=== PATIENT | female | born 1970 | race Hispanic/Latino ===

== ENCOUNTER 2018-05-22 07:26 | Day surgery (SDC) | payer OTHER ==
--- OUTSIDE RECORDS SUMMARY | 2018-05-22 07:28 | XMS REPORT ---
:1970 Author Organization eClinicalWorks Care Team Providers Name Role Phone Paul Lock Provider Role Unavailable Allergies No Known Allergies Problems Problem Type Condition Code Onset Dates Condition Status Assessment Iron deficiency E61.1 Active Problem Iron deficiency E61.1 Active Problem Allergic rhinitis, seasonal J30.2 Active Problem Vitamin D deficiency E55.9 Active Problem Constipation K59.00 Active Problem Hypothyroidism E03.9 Active Problem Symptomatic postsurgical menopause E89.41 Active Problem Fatigue R53.83 Active Medications Medication Code Code Instructions Start End Date Status Dosage System Date Ferrous WAC 60160313953 325 (65 Fe) MG Active 1 tablet Sulfate Orally Twice a day Results No Known Results Summary Purpose eClinicalWorks Submission
--- OUTSIDE RECORDS SUMMARY | 2018-05-22 07:28 | XMS REPORT ---
:1970 Author Organization eClinicalWorks Care Team Providers Name Role Phone Paul Lock Provider Role Unavailable Allergies, Adverse Reactions, Alerts Substance Reaction Event Type N.K.D.A. Info Not Available Non Drug Allergy Problems Problem Type Condition Code Onset Dates Condition Status Assessment Vitamin D deficiency E55.9 Active Assessment Hypothyroidism E03.9 Active Problem Iron deficiency E61.1 Active Problem Allergic rhinitis, seasonal J30.2 Active Problem Vitamin D deficiency E55.9 Active Problem Constipation K59.00 Active Problem Hypothyroidism E03.9 Active Problem Symptomatic postsurgical menopause E89.41 Active Problem Fatigue R53.83 Active Assessment Symptomatic postsurgical menopause E89.41 Active Assessment Allergic rhinitis, seasonal J30.2 Active Assessment Constipation K59.00 Active Assessment Fatigue R53.83 Active Assessment Iron deficiency E61.1 Active Medications Medication Code Code Instructions Start End Status Dosage System Date Date Amitiza [facility] 10837759793 8 MCG Active TAKE ONE CAPSULE BY MOUTH TWICE A DAY WITH FOOD Levothyroxine [facility] 77065775350 75 MCG Orally Active 1 tablet Sodium Once a day on an empty stomach in the morning Claritin [facility] 48880235265 10 MG Orally Active 1 tablet Once a day Flonase [facility] 90540437911 50 MCG/ACT Active 1 spray in Nasally Once a each day nostril Amitiza [facility] 20156512432 24 MCG Orally Active 1 capsule Once a day with food Ferrous Sulfate [facility] 12254719956 325 (65 Fe) MG Active 1 tablet Orally Twice a day Levothyroxine [facility] 98523429394 50 MCG Orally Active 1 tablet Sodium Once a day on an empty stomach in the morning -[address] [facility] 66092229746 81 MG Orally Active 1 tablet Once a day Results No Known Results Summary Purpose eClinicalWorks Submission
--- OUTSIDE RECORDS SUMMARY | 2018-05-22 07:28 | XMS REPORT ---
:1970 Author Organization eClinicalWorks Care Team Providers Name Role Phone LockPaul Provider Role Unavailable Allergies, Adverse Reactions, Alerts Substance Reaction Event Type N.K.D.A. Info Not Available Non Drug Allergy Problems Problem Type Condition Code Onset Dates Condition Status Assessment Well adult on routine health check Z00.00 Active Problem Hypothyroidism E03.9 Active Problem Vitamin D deficiency E55.9 Active Assessment Adult BMI 39.0-39.9 kg/sq m Z68.39 Active Problem Iron deficiency E61.1 Active Problem Adult BMI 39.0-39.9 kg/sq m Z68.39 Active Problem Fatigue R53.83 Active Problem Constipation K59.00 Active Problem Allergic rhinitis, seasonal J30.2 Active Problem Symptomatic postsurgical menopause E89.41 Active Assessment Allergic rhinitis, seasonal J30.2 Active Assessment Constipation K59.00 Active Assessment Fatigue R53.83 Active Assessment Symptomatic postsurgical menopause E89.41 Active Assessment Hypothyroidism E03.9 Active Assessment Screening for colon cancer Z12.11 Active Assessment Iron deficiency E61.1 Active Assessment Need for influenza vaccination Z23 Active Assessment Vitamin D deficiency E55.9 Active Assessment Screening mammogram, encounter for Z12.31 Active Medications Medication Code Code Instructions Start End Status Dosage System Date Date Levothyroxine [facility] 50615565641 75 MCG Orally Active 1 tablet Sodium Once a day on an empty stomach in the morning Ferrous Sulfate [facility] 12826519223 325 (65 Fe) MG Active 1 tablet Orally Twice a day Claritin [facility] 87123896657 10 MG Orally Active 1 tablet Once a day Amitiza [facility] 99573171909 24 MCG Orally Active 1 capsule Once a day with food Flonase [facility] 05621380186 50 MCG/ACT Active 1 spray in Nasally Once a each day nostril Aspir-81 [facility] 72483007708 81 MG Orally Active 1 tablet Once a day Amitiza [facility] 21491555827 8 MCG Active TAKE ONE CAPSULE BY MOUTH TWICE A DAY WITH FOOD Levothyroxine [facility] 94222281027 75 MCG Orally Active 1 tablet Sodium Once a day on an empty stomach in the morning Results No Known Results Immunizations Vaccine Administration Date Afluria May 08, 2018 Summary Purpose eClinicalWorks Submission
[2018-05-22] MEDS ORDERED: Ringers Lactate 1,000 ML IV ONE (07:51)
[2018-05-22] MEDS ORDERED: LIDOCAINE 1% MPF 5 ML VIAL ONE (08:17)
[2018-05-22] MEDS ORDERED: PROPOFOL 200 MG/20 ML VIAL IV ONE (08:17)
[2018-05-22] MEDS ORDERED: GLYCOPYRROLATE 0.2 MG/ML SYR ONE (08:17)
[2018-05-22] MEDS ORDERED: SIMETHICONE 40 MG/ 0.6 ML ONE (08:18)
--- NOTE | 2018-05-22 08:41 | ENDO RPT ---
[address], [address] COLONOSCOPY PROCEDURE REPORT EXAM DATE: 05/22/2018 PATIENT NAME: Franny Key MR #: [id number] BIRTHDATE: 1970 ATTENDING: Eren Rao MD STATUS: outpatient [employer]: Cher Mejia RN, Claritza Mcguire RN, and Leeann Gabriel INDICATIONS: The patient is a 48 yr old Female here for a colonoscopy due to colon cancer screening PROCEDURE PERFORMED: Colonoscopy with biopsy - cold polypectomy MEDICATIONS: Per Anesthesia. ESTIMATED BLOOD LOSS: None CONSENT: The patient understands the risks and benefits of the procedure and understands that these risks include, but are not limited to: sedation, allergic reaction, infection, perforation and/or bleeding. Alternative means of evaluation and treatment include, among others: physical exam, x-rays, and/or surgical intervention. The patient elects to proceed with this endoscopic procedure. DESCRIPTION OF PROCEDURE: During intra-op preparation period all mechanical medical equipment was checked for proper function. Hand hygiene and appropriate measures for infection prevention was taken. Procedure, possible complications, alternatives including, but not limited to possibility of bleeding, perforation, tear, infection, sepsis, need for surgery, need for blood transfusion, were explained to the patient. After the risks, benefits and alternatives of the procedure were thoroughly explained, Informed consent was verified, confirmed and timeout was successfully executed by the treatment team. The patient was placed in the left lateral position. A digital rectal exam was performed and revealed external hemorrhoids. After appropriate level of anesthesia, the scope was passed. The EC-[id number] ([id number]) endoscope was introduced through the anus and advanced to the cecum, which was identified by transillumination from the light source, the appendix, and the ileocecal valve. The quality of the prep was fair. The instrument was then slowly withdrawn as the colon was fully examined. Scope withdrawal time was . COLON FINDINGS: A sessile polyp was found less than 0.4 cm in size at approximately 80 cm from anal verge. Retroflexed views revealed no abnormalities. The scope was then completely withdrawn from the patient and the procedure terminated. ADVERSE EVENTS: There were no complications. IMPRESSIONS: 1. Sessile polyp was found 2. External hemorrhoids 3. Internal hemorrhoids RECOMMENDATIONS: 1. follow-up: office 1 week(s) 2. hemorrhoidal hygiene RECALL: for Colonoscopy, pending biopsy results. Eren Rao MD eSigned: Eren Rao MD 05/22/2018 8:40 AM cc: CPT CODES: ICD9 CODES:
[2018-05-22 08:46] VITALS: TEMP 98.2
[2018-05-22 08:57] VITALS: BP 100/49; O2SAT 98
== END 2018-05-22 09:00 | disposition home or self-care (01) ==
LOC: OR 07:26
PROVIDERS: ATTEND Surgery
PROC: 0DBP8ZX Excision of Rectum, Via Natural or Artificial Opening Endoscopic, Diagnostic (ICD-10-PCS; principal; 2018-05-22 08:30)
DX: K62.0 Anal polyp (principal); K64.8 Other hemorrhoids; K64.4 Residual hemorrhoidal skin tags; E07.9 Disorder of thyroid, unspecified; Z88.6 Allergy status to analgesic agent; Z83.3 Family history of diabetes mellitus
CPT/HCPCS: 88305; J2704

== ENCOUNTER 2019-11-03 10:41 | Emergency (ER) | payer OTHER ==
--- OUTSIDE RECORDS SUMMARY | 2019-11-03 10:44 | XMS REPORT ---
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
--- OUTSIDE RECORDS SUMMARY | 2019-11-03 10:44 | XMS REPORT ---
:1970 Author Organization eClinicalWorks Care Team Providers Name Role Phone Ashvin Paul Provider Role Unavailable Allergies No Known Allergies Problems Problem Type Condition Code Onset Dates Condition Statu s Problem Constipation K59.00 Active Problem Vitamin D deficiency E55.9 Active Problem Fatigue R53.83 Active Problem Current moderate episode of major F32.1 Active depressive disorder without prior episode Problem Abnormal mammogram R92.8 Active Problem Insomnia, unspecified type G47.00 A ctive Problem Adult BMI 39.0-39.9 kg/sq m Z68.39 Active Problem Iron deficiency E61.1 Active Problem HTN, goal below 140/90 I10 Activ e Problem Mixed hyperlipidemia E78.2 Active Problem Hypothyroidism E03.9 Active Problem Symptomatic postsurgical menopause E89.41 Active Assessment Insomnia, unspecified type G47.00 A ctive Problem Allergic rhinitis, seasonal J30.2 Active Medications Medication Code Code Instructions Start End Status Dosage System Date Date Amitriptyline ND 74093254090 25 MG Orally August 12, Active 1 tablet HCl Once a day at 2019 Bedtime Trazodone HCl ND 32976701430 100 MG Orally August 06, Inactive Take 1/2 Once a day 2019 tab QHS x 1 week then 1 tab QHS Results No Known Results Summary Purpose eClinicalWorks Submission
--- OUTSIDE RECORDS SUMMARY | 2019-11-03 10:44 | XMS REPORT ---
:1970 [facility] Team Providers Name Role Phone Paul Lock Provider Role Unavailable Allergies, Adverse Reactions, Alerts Substance Reaction Event Type N.K.D.A. Info Not Available Non Drug Allergy Problems Problem Type Condition Code Onset Dates Condition Statu s Assessment Encounter for dietary counseling and Z71.3 Active surveillance Assessment Mixed hyperlipidemia E78.2 Active Assessment Prediabetes R73.03 Active Problem Symptomatic postsurgical menopause E89.41 Active Assessment Fatigue R53.83 Active Problem Allergic rhinitis, seasonal J30.2 Active Assessment Symptomatic postsurgical menopause E89.41 Active Problem Constipation K59.00 Active Problem Vitamin D deficiency E55.9 Active Problem Fatigue R53.83 Active Problem Current moderate episode of major F32.1 Active depressive disorder without prior episode Problem Abnormal mammogram R92.8 Active Assessment Iron deficiency E61.1 Active Assessment Constipation K59.00 Active Problem Insomnia, unspecified type G47.00 A ctive Assessment Allergic rhinitis, seasonal J30.2 Active Problem Adult BMI 39.0-39.9 kg/sq m Z68.39 Active Problem Iron deficiency E61.1 Active Problem HTN, goal below 140/90 I10 Activ e Problem Mixed hyperlipidemia E78.2 Active Assessment HTN, goal below 140/90 I10 Activ e Assessment Hypothyroidism E03.9 Active Assessment Adult BMI 39.0-39.9 kg/sq m Z68.39 Active Assessment Vitamin D deficiency E55.9 Active Problem Hypothyroidism E03.9 Active Assessment Insomnia, unspecified type G47.00 A ctive Assessment Current moderate episode of major F32.1 Active depressive disorder without prior episode Medications Medication Code Code Instructions Start End Status Dosage System Date Date Amitiza [facility] 44711486417 24 MCG Orally Active 1 caps ule Twice a day with food Levothyroxine [facility] 96453027670 75 MCG Orally Active 1 tablet Sodium Once a day on an empty stomach in the morning Ferrous Sulfate [facility] 92123515558 325 (65 Fe) MG Activ e 1 tablet Orally Twice a day Losartan ND 21842159023 25 MG Orally Active 1 tabl et Potassium Once a day Trazodone HCl [facility] [place] [place] 19258416095 100 MG Orally August 06, Active Take 1/2 Once a day 2019 tab QHS x 1 week then 1 tab QHS Claritin [facility] [place] [place] 21294019369 10 MG Orally Active 1 tabl et Once a day Flonase [facility] 68649400334 50 MCG/ACT Active 1 spray i n Nasally Once a each day nostril Results No Known Results Summary Purpose eClinicalWorks Submission
--- OUTSIDE RECORDS SUMMARY | 2019-11-03 10:44 | XMS REPORT | Continuity of Care Document ---
:1970 Author Organization [facility] t Address [address] [place] [address] Care Team Providers Name Role Phone Unavailable Unavailable Unavailable Problems Condition Condition Condition Status Onset Resolution Last Treating Co mments Source Name Details Category Date Date Treatment Clinician Date Iron Iron Problem Active [facility] deficiency deficiency [facility] Allergic Allergic Problem [facility], [facility] - [facility] Vitamin D Vitamin D Problem Active [facility] deficiency deficiency [facility] Constipati Constipati Problem Active [facility] Hypothyroi Hypothyroi Problem Active [facility]m [facility] Symptomati Symptomati Problem Active [facility] - postsurgic postsurgic Me moria al al l menopause menopause Outp ati ent Clinics Fatigue Fatigue Problem Active [facility] Adult BMI Adult BMI Problem Active [facility] 39.0-39.9 39.0-39.9 [facility] - kg/sq m kg/sq m [facility] Abnormal Abnormal Problem Active [facility]ogram [facility] Mixed Mixed Problem Active [facility] hyperlipid hyperlipid [facility] - emia emia [facility] HTN, goal HTN, goal Problem Active [facility] below below [facility] - 140/90 140/90 [facility] Current Current Problem Active [facility] moderate moderate [facility] - episode of episode of Me moria major major l depressive depressive Ou tpati disorder disorder ent without without Clinics prior prior episode episode Insomnia, Insomnia, Problem Active [facility] unspecifie unspecifie [facility] - d type d type [facility] Allergies, Adverse Reactions, Alerts This patient has no known allergies or adverse reactions. Medications Ordered Filled Start Stop Current Ordering Indication Dosage Frequency Signature Comments Components Source Medication Medication Date Date Medication? Clinician (SIG) Name Name Amitriptylharjinder Amitriptyli Yes Paul [address] [facility] ne HCl ne HCl 5-18 [facility]: [facility] 00 l [facility] Trazodone Trazodone Yes Paul Take 1/[address] HCl HCl 5-12 Lock tab QHS x [facility] - 00:[facility]: 1 week Memoria 00 then 1 tab l QHS [facility] Amitiza Amitiza Yes Paul [address] [facility] with food [facility] Levothyroxi Levothyroxi Yes Paul [address] [facility] ne Sodium ne Sodium Lock on an Lesa es - empty [facility] Claritin Claritin Yes Paul [address] [facility]ics Flonase Flonase Yes Paul [address] [facility] each [facility] - nostril [facility] ent [facility] Ferrous Ferrous Yes Paul [address] [address] Sulfate Sulfate [facility] ent Clinics Losartan Losartan Yes Paul [address] Potassium Potassium Lock [facility] - [facility] Immunizations Ordered Filled Immunization Date Status Comments Sourc e Immunization Name Name Afluria single dose Afluria single dose 2019-01-[address] [facility]00 [facility] Afluria Afluria 2018-05-[address] [facility]00 [facility] Procedures This patient has no known procedures. Encounters Start End Encounter Admission Attending Care Care Encounter Source Date/Time Date/Time Type Type Clinicians Facility Department ID 2019-10-12 2019-10-12 Outpatient Moni Zaman [id number] [facility] 08[facility]23[facility]00 08:23:[address] [facility] 2019-09-11 2019-09-11 Outpatient Moni Montenegrot [id number] [address] 09:15[facility]00 09:15:[address] [facility] 2019-09-10 2019-09-10 [facility] [id number] 11[facility]38[facility]38:[address] [facility] - [address] [facility] Medicine l Medicine Outpati ent Clinics 2019-08-13 2019-08-13 [facility] [id number] 09[facility]17:00 09:17:[address] [facility] [address] [facility] - [address] [facility] Medicine l Medicine Outpati ent Clinics 2019-08-07 2019-08-07 [facility] [id number] 09:45[facility]00 09:45:00 [place] [facility] - Drive [facility] Medicine l Medicine Outpati ent Clinics 2019-07-26 2019-07-26 [facility] [id number] 09[facility]51[facility]00 09:51:00 [place] [facility] l Medicine Outpati ent Clinics 2019-06-28 2019-06-28 [facility] [id number] 09:45[facility]00 09:45:00 [place] [facility] - Drive [facility] Medicine l Medicine Outpati ent Clinics 2019-05-30 2019-05-30 [facility] [id number] 09:30[facility]00 09:30:00 [place] [facility] [employer] l Medicine Outpati ent Clinics 2019-05-09 2019-05-09 [facility] [id number] 08:15:00 08:15:00 [place] [facility] - Drive [facility] Medicine l Medicine Outpati ent Clinics 2019-01-31 2019-01-31 [facility] [id number] 10:45:00 10:45:00 [place] [facility] [employer] [facility] Medicine l Medicine Outpati ent Clinics 2018-10-31 2018-10-31 [facility] [id number] 08:45:00 08:45:00 [place] [facility] [employer] [facility] [address] [facility] l Medicine Outpati ent Clinics 2018-08-02 2018-08-02 [facility] [id number] 09:47:00 09:47:[address] [email or web address] [facility] Medicine Outpati ent Clinics 2018-07-31 2018-07-31 [facility] [id number] 09:00:00 09:00:00 t [employer] [facility] Medicine Outpati ent Clinics 2018-07-10 2018-07-10 [facility] [id number] 08:38:00 08:38:00 t [employer] [facility] Medicine Outpati ent Clinics 2018-05-08 2018-05-08 [facility] [id number] 09:00:00 09:00:00 t [employer] [facility] Medicine Outpati ent Clinics 2018-03-13 2018-03-13 [facility] [id number] 11:16:00 11:16:00 [employer] [facility] Medicine Outpati ent Clinics 2018-03-06 2018-03-06 [facility] [id number] 13:00:00 13:00:00 t [employer] [facility] Medicine Outpati ent Clinics Results This patient has no known results.
--- OUTSIDE RECORDS SUMMARY | 2019-11-03 10:45 | XMS REPORT ---
:1970 [facility] Team Providers Name Role Phone [...] E55.9 Active Problem Hypothyroidism E03.9 Active Assessment Current moderate episode of major F32.1 Active depressive disorder without prior episode Assessment Insomnia, unspecified type G47.00 A ctive Medications Medication Code Code Instructions Start End Status Dosage System Date Date Amitiza [facility] 01727666895 24 MCG Orally Active 1 caps ule Twice a day with food Levothyroxine ND 63125774135 75 MCG Orally Active 1 tablet Sodium Once a day on an empty stomach in the morning Amitriptyline ND 79402352445 25 MG Orally August 12, Active 1 tablet HCl Once a day at 2019 Bedtime Trazodone HCl [facility] 86753621921 100 MG Orally Inactive Take 1/2 Once a day tab QHS x 1 week then 1 tab QHS Claritin [facility] 41899340623 10 MG Orally Active 1 tabl et Once a day Flonase [facility] 83343846882 50 MCG/ACT Active 1 spray Nasally Once a in each day nostril Ferrous Sulfate [facility] 21355717696 325 (65 Fe) MG Activ e 1 tablet Orally Twice a day Losartan [facility] 41902581507 25 MG Orally Active 1 tabl et Potassium Once a day Results No Known Results Summary Purpose eClinicalWorks Submission
--- NOTE | 2019-11-03 11:08 | ER ---
Nurse's Notes [facility] Name: Franny Mendez Age: 49 yrs Sex: Female : 1970 Arrival Date: 11/03/2019 Time: 10:43 Bed 5 Private MD: Paul Lock Diagnosis: Dental caries;Gingivitis and periodontal diseases Presentation: 11/02 10:59 Chief complaint: Patient states: lower teeth pain X 2 weeks. Coronavirus screen: Client iw denies travel out of the [place] in the last 14 days. At this time, the client does not indicate any symptoms associated with coronavirus-19. Ebola Screen: Patient negative for fever greater than or equal to 101.5 degrees Fahrenheit, and additional compatible Ebola Virus Disease symptoms Patient denies exposure to infectious person. Patient denies travel to an Ebola-affected area in the 21 days before illness onset. No symptoms or risks identified at this time. Initial Sepsis Screen: Does the patient meet any 2 criteria? No. Patient's initial sepsis screen is negative. Does the patient have a suspected source of infection? No. Patient's initial sepsis screen is negative. Risk Assessment: Do you want to hurt yourself or someone else? Patient reports no desire to harm self or others. Onset of symptoms was October 20, 2019. 10:59 Method Of Arrival: Ambulatory iw 10:59 Acuity: OSCAR 5 iw Triage Assessment: 11:00 General: Appears in no apparent distress. uncomfortable, Behavior is cooperative, bp appropriate for age, anxious. Pain: Complains of pain in mouth. EENT: Reports LOWER DENTAL PAIN. Neuro: No deficits noted. Cardiovascular: No deficits noted. Respiratory: No deficits noted. GI: No signs and/or symptoms were reported involving the gastrointestinal system. : No signs and/or symptoms were reported regarding the genitourinary system. Derm: No deficits noted. Musculoskeletal: No deficits noted. Historical: - Allergies: 11:01 Codeine; iw - Home Meds: 11: levothyroxine 100 mcg tab 1 tab once daily [Active]; unknown BP medicine [Active]; iw - PMHx: 11:01 Hypothyroidism; Hypertension; iw - PSHx: 11:01 Hysterectomy; Appendectomy; iw - Social history:: Smoking status: . - Family history:: not pertinent. - Hospitalizations: : No recent hospitalization is reported. Screenin:00 Abuse screen: Denies threats or abuse. Denies injuries from another. Nutritional bp screening: No deficits noted. Tuberculosis screening: No symptoms or risk factors identified. Fall Risk None identified. Assessment: 11:00 General: SEE TRIAGE NOTE. bp 11:22 Reassessment: PT D/C HOME AMBULATORY, DX WITH DENTAL CARIES. bp 11:22 General: Appears in no apparent distress. comfortable. iw Vital Signs: 10:59 BP 187 / 82; Pulse 78; Resp 16; Temp 98.0; Pulse Ox 100% on R/A; Weight 73.48 kg; iw Height 5 ft. 1 in. (154.94 cm); 11:21 BP 167 / 85; Pulse 74; Resp 16; Pulse Ox 98% on R/A; iw 10:59 Body Mass Index 30.61 (73.48 kg, 154.94 cm) iw ED Course: 10:43 Patient arrived in ED. ag5 10:43 Palu Lock DO is Private Physician. ag5 10:54 Neftaly Blanco MD is Attending Physician. rn 11:00 Triage completed. iw 11:00 Patient has correct armband on for positive identification. Bed in low position. Call bp light in reach. Side rails up X2. 11:01 Arm band placed on. iw 11:08 Johnnie Yanez, TIEN is Primary Nurse. bp 11:22 No provider procedures requiring assistance completed. Patient did not have IV access bp during this emergency room visit. Administered Medications: 11:15 Drug: TORadol 30 mg Route: IM; Site: right deltoid; iw 11:21 Follow up: Response: No adverse reaction iw Outcome: 11:08 Discharge ordered by . rn 11:21 Patient left the ED. iw 11:22 Discharged to home ambulatory. bp 11:22 Condition: stable 11:22 Discharge instructions given to patient, Instructed on discharge instructions, follow up and referral plans. medication usage, Demonstrated understanding of instructions, follow-up care, medications, Prescriptions given X 2. Signatures: Alla Vazquez RN RN iw Neftaly Blanco MD MD rn Peltier, Brian, RN RN bp Gaskin, Ajare ag5
--- NOTE | 2019-11-03 11:08 | EDPHYS ---
Physician Documentation [facility] Name: Franny Mendez Age: 49 yrs Sex: Female : 1970 Arrival Date: 11/03/2019 Time: 10:43 Bed 5 Private MD: Paul Lock ED Physician Neftaly Blanco HPI: 11/02 11:03 This 49 yrs old Female presents to ER via Ambulatory with complaints of Mouth rn Pain. 11:03 The patient presents with pain. Onset: The symptoms/episode began/occurred 2 week(s) rn ago. Duration: The symptoms are intermittent. Modifying factors: The symptoms are alleviated by nothing, the symptoms are aggravated by nothing. Severity of symptoms: At their worst the symptoms were mild, in the emergency department the symptoms are unchanged. The patient has experienced similar episodes in the past. The patient has been recently seen by a physician:. Reports dental pain for 2 weeks, has seen dentist, told is nerve problem and should get better, did get better and now worse, Reports pain to touch area, but no focal area. NO fever. NO trauma. No chest pain.. Historical: - Allergies: 11: Codeine; iw - Home Meds: 11: levothyroxine 100 mcg tab 1 tab once daily [Active]; unknown BP medicine [Active]; iw - PMHx: 11:01 Hypothyroidism; Hypertension; iw - PSHx: 11:01 Hysterectomy; Appendectomy; iw - Social history:: Smoking status: . - Family history:: not pertinent. - Hospitalizations: : No recent hospitalization is reported. ROS: 11:03 Constitutional: Negative for fever, chills, and weight loss, Eyes: Negative for injury, rn pain, redness, and discharge, ENT: + lower frontal dental pain Cardiovascular: Negative for chest pain, palpitations, and edema, Respiratory: Negative for shortness of breath, cough, wheezing, and pleuritic chest pain, Abdomen/GI: Negative for abdominal pain, nausea, vomiting, diarrhea, and constipation. Exam: 11:03 Constitutional: This is a well developed, well nourished patient who is awake, alert, rn and in no acute distress. Head/Face: Normocephalic, atraumatic. ENT: No focal abscess or swelling, no wounds or lesions, + mild lower frontal gingival erythema and irritation, no loose or subluxed teeth. No facial swelling or fluctuance. Vital Signs: 10:59 BP 187 / 82; Pulse 78; Resp 16; Temp 98.0; Pulse Ox 100% on R/A; Weight 73.48 kg; iw Height 5 ft. 1 in. (154.94 cm); 11:21 BP 167 / 85; Pulse 74; Resp 16; Pulse Ox 98% on R/A; iw 10:59 Body Mass Index 30.61 (73.48 kg, 154.94 cm) iw MDM: 10:54 Patient medically screened. rn 11:03 Differential diagnosis: dental caries, gingivitis, dental abscess. Data reviewed: vital rn signs, nurses notes, and as a result, I will discharge patient. Counseling: I had a detailed discussion with the patient and/or guardian regarding: the historical points, exam findings, and any diagnostic results supporting the discharge/admit diagnosis, the need for outpatient follow up, to return to the emergency department if symptoms worsen or persist or if there are any questions or concerns that arise at home. Special discussion: I discussed with the patient/guardian in detail that at this point there is no indication for admission to the hospital. It is understood, however, that if the symptoms persist or worsen the patient needs to return immediately for re-evaluation. Based on the history and exam findings, there is no indication for further emergent testing or inpatient evaluation. I discussed with the patient/guardian the need to see a dentist for further evaluation of the symptoms. Administered Medications: 11:15 Drug: TORadol 30 mg Route: IM; Site: right deltoid; iw 11:21 Follow up: Response: No adverse reaction iw Disposition: 11/03/19 11:08 Discharged to Home. Impression: Dental caries, Gingivitis and periodontal diseases. - Condition is Stable. - Discharge Instructions: Dental Pain, Gingivitis. - Prescriptions for Clindamycin HCl 300 mg Oral Capsule - take 1 capsule by ORAL route every 6 hours for 10 days; 40 capsule. Diclofenac Sodium 75 mg Oral Tablet, Delayed Release (E.C.) - take 1 tablet by ORAL route 2 times per day; 20 tablet. - Medication Reconciliation Form, Thank You Letter, Antibiotic Education, Prescription Opioid Use form. - Follow up: Private Physician; When: As needed; Reason: Recheck today's complaints, Re-evaluation by your physician. - Problem is an ongoing problem. - Symptoms are unchanged. Signatures: Alla Vazquez RN RN iw Neftaly Blanco MD MD mill turner: (The following items were deleted from the chart) 11:21 11:08 11/03/2019 11:08 Discharged to Home. Impression: Dental caries; Gingivitis and iw periodontal diseases. Condition is Stable. Forms are Medication Reconciliation Form, Thank You Letter, Antibiotic Education, Prescription Opioid Use. Follow up: Private Physician; When: As needed; Reason: Recheck today's complaints, Re-evaluation by your physician. Problem is an ongoing problem. Symptoms are unchanged. rn
[2019-11-03] MEDS ORDERED: KETOROLAC 30 MG/ML INJ ONE (11:25)
[2019-11-03 11:32] VITALS: TEMP 98
[2019-11-03 11:33] VITALS: BP 167/85; O2SAT 98
== END 2019-11-03 11:21 | disposition home or self-care (01) ==
LOC: ER 10:41
DX: K05.10 Chronic gingivitis, plaque induced (principal); K05.6 Periodontal disease, unspecified; I10 Essential (primary) hypertension; E03.9 Hypothyroidism, unspecified; Z88.5 Allergy status to narcotic agent
CPT/HCPCS: 96372; 99283